=== PATIENT | female | born 1985 | race Caucasian/White ===

== ENCOUNTER 2017-03-08 13:35 | Emergency (ER) | payer OTHER ==
[~2017-03-08] VITALS: Ht 172.7 cm; Wt 50.0 kg
[~2017-03-08 13:35] MED LIST: ASCO250T6 PO
[2017-03-08 13:38] VITALS: BP 104/66; PULSE 80; RESP 16; O2SAT 100
--- NOTE | 2017-03-08 13:50 | ED.REPORT ---
HPI-Headache Date of Service Mar 08, 2017 ED Provider: History of Present Illness: ran into a tree while watering the garden, impact on left side of forehead. happened 2 days ago. passed out for 40 minutes, unwitnessed, lives with 'arjun" who is at wound care clinic now. no vomiting, Arrives today because Arjun has appointment today. ate breakfeast this am. primary care is no one. no medication 02/21 Nursing Notes Stated Complaint: HIT HEAD ON APPLE TREE 2 DYS AGO Chief Complaint: Head, Face, Neck Trauma Nursing Notes Reviewed: Yes Allergies: Coded Allergies: glutamic acid (Verified Allergy, Unknown, "FLINSTONE VITAMINS" PER PATIENT , 03/08/17) phosphatidylcholine (Verified Allergy, Unknown, "FLINSTONE VITAMINS" PER PATIENT, 02/18/14) vitamin B complex (Verified Allergy, Unknown, "FLINSTONE VITAMINS" PER PATIENT, 05/10/09) Scheduled Ascorbic Acid-Expunged Drug, Do Not Renew! (Vitamin C-Expunged Drug, Do Not Renew!) 250 Mg Tablet 500 MG PO DAILY General Time Seen by MD: 13:50 Chief Complaint Headache Hx Obtained From: Patient Sudden in Onset?: Yes Symptom Duration: Since onset Past Medical History Past Medical History MS x3 Reports: Asthma, Congestive heart failure Reports: Depression Past Surgical History denies Smoking History Current Every Day Smoker (7 cig a day for 5 years) Social History Alcohol Use: Denies alcohol use Drug Use: Denies drug use, THC Occupation live with Arjun no work or school 03/08/2017 Ambulatory Status Independent Review of Systems Basic Review of Systems Respiratory: No shortness of breath, No cough, No wheeze Hematologic: No bleeding, No bruising Endocrine: No cold intolerance, No heat intolerance, No weight gain, No weight loss Physical Exam Initial Vital Signs Vital Signs (First) Date Time Temp Pulse Resp B/P Pulse Ox O2 Delivery O2 Flow Rate FiO2 03/08/17 13:38 36.1 80 16 104/66 100 Room Air Initial VS: Reviewed, Vital signs normal ENT: Mucous membranes moist, Conjunctiva normal, No scleral icterus Respiratory: Breath sounds normal, Clear to auscultation, No respiratory distress Cardiovascular: Regular rate & rhythm, Heart sounds normal, Intact distal pulses Abdomen / GI: Soft, Non-tender, No guarding, No rebound, No distention Back: No CVA tenderness Lymphatic: No lymphadenopathy Extremities: Vascular intact, Neuro intact, No swelling, No tenderness Skin: Warm, Dry, No cyanosis Psychiatric: Mood/affect normal, Behavior normal, Normal thought content General/Constitutional: Awake, Alert, No acute distress, Well appearing, Well developed, Well hydrated, Well nourished, Cooperative, Not toxic appearing arrives to ER without shoes and carrying a pillow Head / Eyes: Atraumatic, Normocephalic, PERRL, EOMI no palpable hematoma on head or forehead. no skin disruption noted. no ecchymosis noted. Neck: Atraumatic, Supple, No meningismus Neurologic: Oriented X3, Speech NL, No motor deficits ENT: Atraumatic, Airway patent, Mucous membranes moist, Pharynx NL, No peritonsillar abscess Respiratory / Chest: Atraumatic, Breath sounds NL, Breath sounds = bilat, No respiratory distress Cardiovascular: Heart rate NL, Regular rhythm, Heart sounds NL Interpretation & Diagnostics CT Head Interpretation ROCEDURE: CT BRAIN WITHOUT CONTRAST ([id number]) INDICATIONS: hit head, reported LOC TECHNIQUE: Noncontrast 4.5 mm thick angled axial sections acquired from the foramen magnum to the vertex, with coronal reformats. COMPARISON: CT brain 01/15/2011 FINDINGS: Image quality: Excellent. CSF spaces: Basal cisterns are patent. No extra-axial fluid collections. Ventricles are normal in size and shape. Brain: No midline shift. No intracranial masses or hemorrhage. Ozuna-white matter interface is normal. Skull and face: Calvarium and visualized facial bones are intact, without suspicious lesions. Sinuses: Visualized sinuses and mastoids are clear. IMPRESSION: Normal CT brain scan Dictated by: Shilo Thurman M.D. on 03/08/2017 at 14:52 Approved by: Shilo Thurman M.D. on 03/08/2017 at 14:54 Re-Eval/Medical Decision Med Decision/Clinical Course 31 year old female presents 2 days out from unwitnessed head injury which resulted in a LOC. Head CT is normal. patient reports improvement after ibuprofen . No sign of skull fracture or bleed. Discharge & Departure Impression: Primary Impression: Head trauma Encounter type: initial encounter Qualified Code: S09.90XA - Unspecified injury of head, initial encounter Disposition: Home Patient Instructions: Head Injury (ED) Additional Instructions: The head CT is normal. The ibuprofen has helped with your head pain. Use ibuprofen 600 mg up to 3 times a day as needed for discomfort. Follow with primary care. REturn as needed. Referrals: Nadeem Weldon MD (PCP) EDSupervising Provider for APC: Raymond To MD copies to: Nadeem Weldon MD, Sue ARNP Mar 08, 2017 13:50
--- NOTE | 2017-03-08 14:55 | DRSVH ---
PROCEDURE: CT BRAIN WITHOUT CONTRAST ([id number]) INDICATIONS: hit head, reported LOC TECHNIQUE: Noncontrast 4.5 mm thick angled axial sections acquired from the foramen magnum to the vertex, with c oronal reformats. COMPARISON: CT brain 01/15/2011 FINDINGS: Image quality: Excellent. CSF spaces: Basal cisterns are patent. No extra-axial fluid collections. Ventricles are normal in size and shape. Brain: No midline shift. No intracranial masses or hemorrhage. Ozuna-white matter interface is norm al. Skull and face: Calvarium and visualized facial bones are intact, without suspicious lesions. Sinuses: Visualized sinuses and mastoids are clear. IMPRESSION: Normal CT brain scan Dictated by: Shilo Thurman M.D. on 03/08/2017 at 14:52 Approved by: Shilo Thurman M.D. on 03/08/2017 at 14:54
[2017-03-08 15:13] VITALS: BP 110/62; PULSE 67; RESP 12
== END 2017-03-08 15:14 | disposition home or self-care (01) ==
LOC: SED 13:35
DX: S09.8XXA Other specified injuries of head, initial encounter (principal); W22.09XA Striking against other stationary object, initial encounter; Y93.H2 Activity, gardening and landscaping; Y99.8 Other external cause status; Y92.017 Garden or yard in single-family (private) house as the place of occurrence of the external cause; J45.909 Unspecified asthma, uncomplicated; I25.2 Old myocardial infarction; I50.9 Heart failure, unspecified; F17.210 Nicotine dependence, cigarettes, uncomplicated; Z88.8 Allergy status to other drugs, medicaments and biological substances